=== PATIENT | female | born 1995 | race Caucasian/White ===

== ENCOUNTER 2018-10-21 17:49 | Outpatient (REF) | payer BC, SELFPAY | END 2018-10-21 18:09 | LOC: NCHCN 17:49 | PROVIDERS: Visit Provider Nurse Practitioner Family | DX: J02.9 Acute pharyngitis, unspecified (principal) | CPT/HCPCS: 87070 ==

== ENCOUNTER 2019-01-29 12:37 | Outpatient (REF) | payer BC, SELFPAY | END 2019-01-29 12:57 | LOC: NCHCN 12:37 | PROVIDERS: PCP Nurse Practitioner Family; Visit Provider Nurse Practitioner Family | DX: J02.9 Acute pharyngitis, unspecified (principal) | CPT/HCPCS: 87070 ==

== ENCOUNTER 2019-02-09 15:48 | Outpatient (REF) | payer BC, SELFPAY ==
--- NOTE | 2019-02-09 15:40 | PAPFT_PTH ---
PATIENT: Teri Zendejas LOC: [facility] U#:[id number] AGE/SX: 23/F ROOM: RE02/09/[address]: Elizabeth Shabazz : 1995 BED: DIS: 02/09/2019 SPEC #: [id number] RECD: 02/09/19 18:04 STATUS: ZACKARY REQ #: [id number] NATHALIE: 02/09/19 15:[address]: Elizabeth Shabazz DEPT: [facility] Cytology RECD BY: Katina Roldan ENTERED: 02/09/19 18:04 SP TYPE: PAPFT OTHR DR: Swati Alcantar Tissues: 1 - CX/ENDOCX FOR PAP SMEARS Procedures: PAP THIN PREP/[facility] Screening Comments: [id number]
[2019-02-13 11:48] LABS: Chlamydia amplified RNA Negative; Source Cervix
[2019-02-13 11:49] LABS: N gonorrhoeae amplified RNA Negative
== END 2019-02-09 16:08 ==
LOC: LBN 15:48
PROVIDERS: PCP Nurse Practitioner Family; Visit Provider Obstetrics & Gynecology Gynecology
DX: Z12.4 Encounter for screening for malignant neoplasm of cervix
CPT/HCPCS: 87491; 87591; 88142

== ENCOUNTER 2020-01-18 22:37 | Outpatient (REF) | payer BC, SELFPAY ==
[2020-01-21 15:23] LABS: Patient Race White; SARS-CoV-2 RNA Undetected (Undetected); SARS-CoV-2 Specimen Source Nasopharynx
== END 2020-01-18 22:57 ==
LOC: NCHCN 22:37
PROVIDERS: PCP Nurse Practitioner Family; Visit Provider Nurse Practitioner Family
DX: Z00.00 Encounter for general adult medical examination without abnormal findings (principal); Z11.59 Encounter for screening for other viral diseases
CPT/HCPCS: U0003

== ENCOUNTER 2020-02-21 21:57 | Emergency (ER) | payer SELFPAY | END 2020-02-21 22:05 | disposition other institution (70) | PROVIDERS: PCP Nurse Practitioner Family | DX: Z53.21 Procedure and treatment not carried out due to patient leaving prior to being seen by health care provider (principal) ==

== ENCOUNTER 2020-09-28 16:08 | Outpatient (REF) | payer BC, SELFPAY ==
[2020-09-29 15:29] LABS: Chlamydia Result Negative (Negative); GC Result Negative (Negative)
== END 2020-09-28 16:09 | disposition home or self-care (01) ==
LOC: LBN 16:08
PROVIDERS: PCP Nurse Practitioner Family; Visit Provider Obstetrics & Gynecology Gynecology
DX: Z11.3 Encounter for screening for infections with a predominantly sexual mode of transmission (principal)
CPT/HCPCS: 87491; 87591

== ENCOUNTER 2022-06-12 15:12 | Outpatient (REF) | payer BC, SELFPAY ==
--- NOTE | 2022-06-12 13:45 | PAPFT_PTH ---
PATIENT: Teri Zendejas LOC: [facility] U#:[id number] AGE/SX: 27/F ROOM: RE06/12/[address]: Elizabeth Shabazz : 1995 BED: DIS: 06/12/2022 SPEC #: [id number] RECD: 06/12/22 18:07 STATUS: ZACKARY REQ #: [id number] NATHALIE: 06/12/22 13:[address]: Elizabeth Shabazz DEPT: [facility] Cytology RECD BY: Katina Roldan ENTERED: 06/12/22 18:08 SP TYPE: PAPFT OTHR DR: Swati Alcantar Tissues: 1 - CX/ENDOCX FOR PAP SMEARS Procedures: PAP THIN PREP/[facility] Screening Comments: [id number]
[2022-06-14 18:46] LABS: Chlamydia Result Negative (Negative); GC Result Negative (Negative)
== END 2022-06-12 15:13 | disposition home or self-care (01) ==
LOC: LBN 15:12
PROVIDERS: PCP Nurse Practitioner Family; Visit Provider Obstetrics & Gynecology Gynecology
DX: Z11.3 Encounter for screening for infections with a predominantly sexual mode of transmission (principal); Z12.4 Encounter for screening for malignant neoplasm of cervix
CPT/HCPCS: 87491; 87591; 88142

== ENCOUNTER 2022-06-18 17:09 | Outpatient (REF) | payer BC, SELFPAY ==
[2022-06-18 15:23] LABS: Abs Immature Grans 0.01 10^3/uL (0.0-0.06); Absolute Basophil Count 0.02 10^3/uL (0.0-0.2); Absolute Eosinophil Count 0.07 10^3/uL (0.0-0.7); Absolute Monocyte Count 0.34 10^3/uL (0.1-0.8); Basophils % 0.4; Eosinophils % 1.5; HCT 39.7 % (36.0-46.0); HGB 13.6 g/dL (11.2-15.7); Immature Grans % 0.2; Lymphocytes % 36.6; MCH 31.5 pg (27.0-33.0); MCHC 34.3 % (32.0-36.0); MCV 92 fL (80-95); MPV 9.1 fL (8.0-11.0); Monocytes % 7.3; Platelet Count 215 10^3/uL (130-400); RBC 4.32 10^6/uL (3.93-5.22); RDW-SD 40.5 fL; WBC 4.64 10^3/uL (4.4-10.8)
[2022-06-18 15:48] LABS: Anion Gap 7.3 mmol/L (3-11); BUN 14 mg/dL (7-18); CO2 28.7 mmol/L (21.0-32.0); CREATININE 0.7 mg/dL (0.55-1.02); Calcium 9.1 mg/dL (8.5-10.1); Chloride 107 mmol/L (98-107); Estimated GFR 123.01 (mL/min/1.73m2); Glucose 101 mg/dL (74-106); Sodium 143 mmol/L (136-145); TSH 1.49 uIU/mL (0.36-3.74)
== END 2022-06-18 17:10 | disposition home or self-care (01) ==
LOC: NCHCN 17:09
PROVIDERS: PCP Nurse Practitioner Family; Visit Provider Nurse Practitioner Family
DX: R53.83 Other fatigue (principal)
CPT/HCPCS: 80048; 84443; 85025